=== PATIENT | male | born 1980 | race Caucasian/White ===

== ENCOUNTER → 2019-09-24 15:34 | Outpatient (CLI) | payer BC, SELFPAY ==
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
== END ==
PROVIDERS: Referring Provider Nurse Practitioner; Visit Provider Nurse Practitioner
DX: M25.572 Pain in left ankle and joints of left foot (principal); M79.672 Pain in left foot; M79.641 Pain in right hand; M25.531 Pain in right wrist; M79.89 Other specified soft tissue disorders
CPT/HCPCS: 73110; 73130; 73610; 73630